=== PATIENT | male | born 1950 | race Asian ===

== ENCOUNTER 2016-07-23 16:31 | Inpatient (IN) | payer OTHER ==
[~2016-07-23] VITALS: Ht 162.6 cm; Wt 72.6 kg
--- NOTE | 2016-07-23 16:40 | ED GI/GU/ABDOMINAL COMPLAINT ---
History of Present Illness General Chief Complaint: General Adult Stated Complaint: PT WAS SIB DR FOR POSSIBLE APPENDICITIS Source: patient Exam Limitations: no limitations Vital Signs & Intake/Output Vital Signs & Intake/Output Vital Signs Date Time Temp Pulse Resp B/P Pulse O2 O2 Flow FiO2 Ox Delivery Rate 07/23 1716 Room Air Room Air 07/23 171 97.2 68 15 140/93 98 Room Air Room Air Allergies Coded Allergies: NO KNOWN ALLERGIES (08/07/12) Reconcile Medications Multivit-Min/FA/Lycopen/Lutein (Centrum Silver Men Tablet) 300 MCG-600 MCG-300 MCG TABLET 1 TAB PO DAILY SUPPLEMENT (Reported) Triage Nurses Notes Reviewed? yes Onset: Gradual Duration: waxing and waning Timing: recent history Quality/Severity: moderate Location: generalized abdomen Radiation: no radiation Activities at Onset: none Prior Abdominal Problems: none HPI: Patient is a 65-year-old male with an unremarkable past medical history who presents emergency with a gradual onset of waxing and waning denies abdominal pain. Patient followed up with primary care doctor today received CT scan imaging and had positive results concerning of appendicitis. Patient has only eaten an apple today and has no change in symptoms upon eating. Denies any fever chills back pain nausea vomiting. Last bowel movement was within last 24 hours no blood or melena noted. Patient hasn't taken any medications for symptoms. (CUBA CASTELAN) Past History Travel History Traveled to [place] past 21 day No Medical History Any Pertinent Medical History? none Surgical History Surgical History: non-contributory Psychosocial History What is your primary language Colombian Family History Hx Contributory? No (CUBA CASTELAN) Review of Systems Review of Systems Constitutional: Reports: no symptoms. EENTM: Reports: no symptoms. Respiratory: Reports: no symptoms. Cardiovascular: Reports: no symptoms. GI: Reports: see HPI, abdominal pain. Genitourinary: Reports: no symptoms. Musculoskeletal: Reports: no symptoms. Skin: Reports: no symptoms. Neurological/Psychological: Reports: no symptoms. Hematologic/Endocrine: Reports: no symptoms. Immunologic/Allergic: Reports: no symptoms. All Other Systems: Reviewed and Negative (CUBA CASTELAN) Physical Exam Physical Exam General Appearance: no apparent distress, alert Gastrointestinal: normal bowel sounds, soft, gENERALIZED POINT TENDERNESS NOTED Comments: HEENT: Normal EENT exam Neck: Supple, no lymphadenopathy, normal range of motion without pain or tenderness Back: Nontender, no CVA tenderness. Full range of motion Cardiovascular: Regular rate and rhythms no murmurs rubs or gallops, normal JVP Respiratory: Chest nontender. No respiratory distress.breath sounds clear to auscultation bilaterally Extremity: No edema, no calf tenderness to palpation, normal and equal pulses. Neuro: Alert oriented x3, motor sensory normal, cranial nerves II through XII grossly intact. Skin: No appreciable rash on exposed skin, skin is warm and dry. Psych: Mood and affect is normal, memory and judgment is normal. Core Measures ACS in differential dx? No Severe Sepsis Present: No Septic Shock Present: No (ZHAO BRICENO,CUBA) Progress Differential Diagnosis: AAA, AMI, appendicitis, biliary colic, bowel obstruction , colon cancer, cholecystitis, diverticulitis, esophageal varices, gastritis, hernia, hemorrhoids, ischemic bowel, inflamm bowel dis, Valerie-Scott tear, orchitis, pancreatitis, prostatitis, peptic ulcer, PUD/GERD, perforated viscous, pyelonephritis, SBO, testicular torsion, ureterolithiasis, urinary retention, urethritis Plan of Care: Orders Procedure Date/time Status Nothing by Mouth 07/24 B Active LACTIC ACID 07/23 1940 Active XRY-PORTABLE CHEST XRAY 07/23 1715 Active MISTAKE 07/23 1711 Active EKG 07/23 1649 Active PARTIAL THROMBOPLASTIN TIME 07/23 1640 Complete PROTHROMBIN TIME 07/23 1640 Complete LACTIC ACID 07/23 1640 Complete COMPREHENSIVE METABOLIC PANEL 07/23 1640 Complete CBC WITHOUT DIFFERENTIAL 07/23 1640 Complete TYPE & SCREEN (NOT X-MATCH) 07/23 1640 Active Laboratory Tests 07/23/16 1705: Anion Gap 12, Estimated GFR > 60, BUN/Creatinine Ratio 13.8, Glucose 102 H, Lactic Acid 0.7, Calcium 9.3, Total Bilirubin 0.9, AST 22, ALT 36, Alkaline Phosphatase 105, Total Protein 7.6, Albumin 4.4, Globulin 3.2, Albumin/Globulin Ratio 1.4, PT 12.8 H, INR 1.22 H, APTT 31, CBC w Diff NO MAN DIFF REQ, RBC 5.38, MCV 83.3, MCH 27.4, RDW 13.7, MPV 7.5, Gran % 77.7 H, Lymphocytes % 14.1 L, Monocytes % 6.3, Eosinophils % 1.5, Basophils % 0.4, Absolute Granulocytes 9.8 H, Absolute Lymphocytes 1.8, Absolute Monocytes 0.8 H, Absolute Eosinophils 0.2, Absolute Basophils 0, PUBS MCHC 32.9 L Patient currently is resting comfortably and has concerns of acute appendicitis. Surgery will perform appendectomy Patient is nothing by mouth (CUBA CASTELAN) Diagnostic Imaging: Viewed by Me: CT Scan. Radiology Impression: acute abnormality Initial ED EKG: normal p-waves, normal QRS complex, normal sinus rhythm, 63 BPM, NSR Comments: PATIENT: MODESTO MESA PRESENT AGE: 65 PATIENT ACCOUNT NO: [id number] : 50 LOCATION: [facility] ORDERING PHYSICIAN: MESFIN SON MD SERVICE DATE: 07/23/16- EXAM TYPE: CAT - CT ABD & PELVIS W ORAL & IV CO Addendum: Britta Rothman confirmed with Rebecca at 4:[address] Son had received the report. Addendum Signed by: PATRICIA WOODS MD 07/23/16 3660 EXAMINATION: CT ABDOMEN AND PELVIS WITH CONTRAST CLINICAL INFORMATION: Periumbilical pain for 3 days. Right lower quadrant tenderness with guarding and rebound. Evaluate for appendicitis. COMPARISON: None TECHNIQUE: Multidetector volumetric imaging was performed of the abdomen and pelvis before and after the IV administration of 93 mL of Optiray 320 intravenous contrast. Sagittal and coronal reformatted images were obtained on the technologist's workstation. DLP: 783 mGy-cm FINDINGS: LUNG BASES: The visualized lung bases are unremarkable. LIVER, GALLBLADDER, AND BILIARY TREE: The liver is normal in size, shape, and attenuation. No focal hepatic lesion or biliary ductal dilatation is present. The gallbladder is unremarkable with no evidence of radiopaque gallstones, gallbladder wall thickening, or obvious pericholecystic inflammatory changes. PANCREAS: Unremarkable. SPLEEN: Unremarkable. ADRENAL GLANDS: Unremarkable. KIDNEYS AND URETERS: The kidneys are normal in size, shape, and attenuation. No hydronephrosis, hydroureter, or calculi seen. No perinephric stranding. BLADDER: Unremarkable. GASTROINTESTINAL TRACT: Appendix: There is dilatation of a fluid-filled appendix with prominent stranding in the surrounding fat indicative of acute appendicitis. I do not see an appendicolith. There is minimal thickening of Gerota's fascia likely related to the inflammatory changes. There is no abscess. There is no free air. Other than some minimal surrounding pericolonic stranding in the cecum related to the suspected appendicitis, the large bowel is normal. The small bowel is normal. The stomach is normal. ABDOMINAL WALL: No significant hernia is appreciated. LYMPH NODES: Normal. VASCULAR: Unremarkable. PELVIC VISCERA: Unremarkable. OSSEOUS STRUCTURES: Minimal spondylosis of the lumbosacral spine with minimal endplate osteophyte formation but without any disc space narrowing. IMPRESSION: Acute appendicitis. DICTATED BY: PATRICIA WOODS MD DATE/TIME DICTATED:07/23/161549 MANAGER APPOINTMENT:CHARLI DATE/TIME TRANSCRIBED:07/23/161549 (CUBA CASTELAN) Departure Departure Disposition: STILL A PATIENT Condition: Critical Clinical Impression Primary Impression: Appendicitis Referrals: HUY SOLORIO,MESFIN Rosas (PCP/Family) Departure Forms: Customer Survey General Discharge Information OR/GI Note Spoke With: PHOEBE DURAND DO ED Treatment Decision: MODESTO MESA requires urgent operative management or an emergent procedure that cannot be performed in the Emergency Room setting. Transport To: [facility] (CUBA CASTELAN) PA/STONE LATHE OPERATOR Co-Sign Statement Statement: ED Attending supervision documentation- [X] I saw and evaluated the patient. I have also reviewed all the pertinent lab results and diagnostic results. I agree with the findings and the plan of care as documented in the PA's/STONE LATHE OPERATOR's documentation. [X] I have reviewed the ED Record and agree with the PA's/STONE LATHE OPERATOR's documentation. [] Additions or exceptions (if any) to the PAs/STONE LATHE OPERATOR's note and plan are summarized below: [] (LETICIA SOLORIO,RAFAEL) Critical Care Note Critical Care Note Critical Care Time: 30-74 min (CUBA CASTELAN)
[2016-07-23] MEDS ORDERED: CENTRUM SILVER1 EAC4 PO (16:53)
[2016-07-23 17:16] LABS: ABSOLUTE BASOPHIL COUNT 0 /CUMM (0.0-0.2); ABSOLUTE EOSINOPHIL COUNT 0.2 /CUMM (0.0-0.7); ABSOLUTE GRANULOCYTE CT 9.8 /CUMM (1.4-6.5); ABSOLUTE LYMPH COUNT 1.8 /CUMM (1.2-3.4); ABSOLUTE MONOCYTE COUNT 0.8 /CUMM (0.10-0.60); BASOPHIL % 0.4 % (0.0-2.0); EOSINOPHIL % 1.5 % (0-5); GRANULOCYTE % 77.7 % (42.2-75.2); HEMATOCRIT 44.8 % (42-52); MEAN CORPUSCULAR HGB 27.4 PG (27.0-31.0); MEAN CORPUSCULAR HGB CONC 32.9 G/DL (33.0-37.0); MEAN CORPUSCULAR VOLUME 83.3 FL (80.0-94.0); MEAN PLATELET VOLUME 7.5 FL (7.4-10.4); PLATELET COUNT 253 /CUMM (130-400); RBC DISTRIBUTION WIDTH 13.7 % (11.5-14.5); RED BLOOD CELL CT 5.38 /CUMM (4.70-6.10); WHITE BLOOD CELL COUNT 12.6 /CUMM (4.8-10.8)
--- NOTE | 2016-07-23 17:16 | NUR ---
RECEIVED 65 YO MALE BOUGHT DIRECTLY TO ROOM # [address] SCAN FOR APPENDICITIS[address] PT REPORTS ABDOMINAL PAIN INTERMITTENTLY X 3 DAYS.
--- NOTE | 2016-07-23 17:17 | NUR ---
SURGICAL PA AT BEDSIDE FOR EVAL.
[2016-07-23 17:24] LABS: PT 12.8 SEC (9.4-12.5); PTT 31 SEC (25-37)
--- NOTE | 2016-07-23 17:32 | History & Physical ---
LALIT ZHANG PA-C 07/23/16 7605: General Information and HPI History of Present Illness: Patient is a 65-year-old male with an unremarkable past medical history who presents emergency with a gradual of generalized abdominal pain for last 2-3 days. Decreased appetite. Denies nausea vomiting or fever. No history of same. No previous history of abdominal surgery. He states the pain was very severe in his lower abdomen today, right side mostly but also some moderate left -sided pain that was nonradiating. Patient followed up with primary care doctor today received CT scan imaging with IV and by mouth contrast and had positive results of appendicitis. I have reviewed the CT scan results. Patient is comfortable now, he has pain only with palpation of the lower abdomen. He denies any urinary symptoms. Allergies/Medications Allergies: Coded Allergies: NO KNOWN ALLERGIES (08/07/12) Home Med list Multivit-Min/FA/Lycopen/Lutein (Centrum Silver Men Tablet) 300 MCG-600 MCG-300 MCG TABLET 1 TAB PO DAILY SUPPLEMENT (Reported) Past History Travel History Traveled to [place] past 21 day No Medical History Neurological: NONE EENT: NONE Cardiovascular: NONE Respiratory: NONE Gastrointestinal: NONE Hepatic: NONE Renal: NONE Musculoskeletal: NONE Psychiatric: NONE Endocrine: NONE Blood Disorders: NONE Cancer(s): NONE CABANA ATTENDANT/Reproductive: NONE Surgical History Surgical History: nasal surgery Past Family/Social History Psychosocial History ETOH Use: denies use Illicit Drug Use: denies illicit drug use Review of Systems Review of Systems Constitutional: Reports: see HPI. EENTM: Reports: no symptoms. Cardiovascular: Reports: no symptoms. Respiratory: Reports: no symptoms. GI: Reports: see HPI. Genitourinary: Reports: no symptoms. Musculoskeletal: Reports: no symptoms. Skin: Reports: no symptoms. Neurological/Psychological: Reports: no symptoms. Hematologic/Endocrine: Reports: no symptoms. Immunologic/Allergic: Reports: no symptoms. All Other Systems: Reviewed and Negative Exam & Diagnostic Data Last 24 Hrs of Vital Signs/I&O Vital Signs Date Time Temp Pulse Resp B/P Pulse O2 O2 Flow FiO2 Ox Delivery Rate 07/24 1715 Room Air Room Air 07/23 1710 97.2 68 15 140/93 98 Room Air Room Air Physical Exam General Appearance Alert, Oriented X3, Cooperative, No Acute Distress Skin No Rashes, No Breakdown, No Significant Lesion HEENT Atraumatic, PERRLA, EOMI, Mucous Membr. moist/pink Neck Supple, No JVD, No thryomegaly Lymphatic Cervical nl Cardiovascular Regular Rate, Normal S1, Normal S2, No Murmurs Lungs Clear to Auscultation, Normal Air Movement Abdomen Normal Bowel Sounds, Soft, No Hepatospenomegaly, No Masses, mild tenderness over McBurney's point,minimal tenderness of the left lower quadrant, positive Rovsing sign. Negative psoas sign. No peritoneal signs Neurological Normal Speech, Strength at 5/5 X4 Ext Extremities No Clubbing, No Cyanosis, No Edema, No Tenderness/Swelling Last 24 Hrs of Labs/Damien: Laboratory Tests 07/23/16 1705: Sodium Pending, Potassium Pending, Chloride Pending, Carbon Dioxide Pending, Anion Gap Pending, BUN Pending, Creatinine Pending, BUN/Creatinine Ratio Pending , Glucose Pending, Lactic Acid Pending, Calcium Pending, Total Bilirubin Pending , AST Pending, ALT Pending, Alkaline Phosphatase Pending, Total Protein Pending, Albumin Pending, Globulin Pending, Albumin/Globulin Ratio Pending, PT Pending, INR Pending, APTT Pending, CBC w Diff NO MAN DIFF REQ, RBC 5.38, MCV 83.3, MCH 27.4, RDW 13.7, MPV 7.5, Gran % 77.7 H, Lymphocytes % 14.1 L, Monocytes % 6.3, Eosinophils % 1.5, Basophils % 0.4, Absolute Granulocytes 9.8 H, Absolute Lymphocytes 1.8, Absolute Monocytes 0.8 H, Absolute Eosinophils 0.2, Absolute Basophils 0, PUBS MCHC 32.9 L Diagnostic Data EKG Results NSR 65bpm, no st/t wave changes CXR Results pending performance of chest xray for pre op. Other Results PATIENT: MODESTO MESA PRESENT AGE: 65 PATIENT ACCOUNT NO: [id number] : 50 [facility]ICIAN: MESFIN SON MD SERVICE DATE: 07/23/16- EXAM TYPE: CAT - CT ABD & PELVIS W ORAL & IV CO Addendum: Britta Rothman confirmed with Rebecca at 4:[address] Son had received the report. Addendum Signed by: PATRICIA WOODS MD 07/23/16 162 EXAMINATION: CT ABDOMEN AND PELVIS WITH CONTRAST CLINICAL INFORMATION: Periumbilical pain for 3 days. Right lower quadrant tenderness with guarding and rebound. Evaluate for appendicitis. COMPARISON: None TECHNIQUE: Multidetector volumetric imaging was performed of the abdomen and pelvis before and after the IV administration of 93 mL of Optiray 320 intravenous contrast. Sagittal and coronal reformatted images were obtained on the technologist's workstation. DLP: 783 mGy-cm FINDINGS: LUNG BASES: The visualized lung bases are unremarkable. LIVER, GALLBLADDER, AND BILIARY TREE: The liver is normal in size, shape, and attenuation. No focal hepatic lesion or biliary ductal dilatation is present. The gallbladder is unremarkable with no evidence of radiopaque gallstones, gallbladder wall thickening, or obvious pericholecystic inflammatory changes. PANCREAS: Unremarkable. SPLEEN: Unremarkable. ADRENAL GLANDS: Unremarkable. KIDNEYS AND URETERS: The kidneys are normal in size, shape, and attenuation. No hydronephrosis, hydroureter, or calculi seen. No perinephric stranding. BLADDER: Unremarkable. GASTROINTESTINAL TRACT: Appendix: There is dilatation of a fluid-filled appendix with prominent stranding in the surrounding fat indicative of acute appendicitis. I do not see an appendicolith. There is minimal thickening of Gerota's fascia likely related to the inflammatory changes. There is no abscess. There is no free air. Other than some minimal surrounding pericolonic stranding in the cecum related to the suspected appendicitis, the large bowel is normal. The small bowel is normal. The stomach is normal. ABDOMINAL WALL: No significant hernia is appreciated. LYMPH NODES: Normal. VASCULAR: Unremarkable. PELVIC VISCERA: Unremarkable. OSSEOUS STRUCTURES: Minimal spondylosis of the lumbosacral spine with minimal endplate osteophyte formation but without any disc space narrowing. IMPRESSION: Acute appendicitis. DICTATED BY: PATRICIA WOODS MD DATE/TIME DICTATED:07/23/161549 TAG WRITER:CHARLI DATE/TIME TRANSCRIBED:07/23/161549 Assessment/Plan Assessment: Acute appendicitis -Discussed with , admitted for 23 hour observation for acute appendicitis, to OR tonight for Lappas copy appendectomy -IV Unasyn given in the ER, 3 g and continue postoperatively -DVT prophylaxis postop with heparin subcutaneous -Pain medication as needed, currently patient comfortable -Nothing by mouth until surgery As Ranked By This Provider Problem List: 1. Appendicitis Core Measures/Miscellaneous Acute Coronary Syndrome ACS Diagnosis: No Cerebrovascular Accident CVA/TIA Diagnosis: No Congestive Heart Failure CHF Diagnosis: No Venous Thromboembolism VTE Risk Factors: Age > 40, [facility] prophylaxis d/t: No contraindications No VTE Pharm Prophylaxis d/t: No contraindications VTE Diagnosis: No VTE Type: NONE VTE Confirmed by (Test): NONE Severe Sepsis Severe Sepsis Present: No Septic Shock Septic Shock Present: No Miscellaneous Documentation Attending Case Discussed With: Dr Díaz Primary Care Physician: MESFIN SON MD Patient sees these Specialists none Level of Patient Care: General Surgical LADARIUS PHOEBE JIMENEZ 07/23/162031: Attending MD Review Statement Attending Statement Attending MD Statement: examined this patient, discuss w/resident/PA/RETURNS PROCESSOR, agreed w/resident/PA/RETURNS PROCESSOR, discussed with family, reviewed images Attending Assessment/Plan: Patient with abdominal pain for past 2-3 days that became more severe overnight. CT scan shows acute appendicitis with surrounding inflammation. On exam patient with RLQ pain. A Laparoscopic appendectomy was discussed in detail. He will be admitted for NPO/IVF/IV Abx, and lap Appy leta. I did also explain that if the inflammation is extensive with a phlegmon I may not be able to do the case and would drain and place on IV Abx. The family and patient understand and want to proceed.
--- NOTE | 2016-07-23 17:58 | NUR ---
PRE-OP CHECKLIST COMPLETED AND SCRUB COMPLETE. PT STABLE FOR OR. PT TRANSPORTED TO OR NOW.
--- NOTE | 2016-07-23 17:59 | RADIOLOGY REPORT ---
EXAMINATION: XR PORTABLE CHEST CLINICAL INFORMATION: Preoperative evaluation for appendicitis surgery. COMPARISON: Portions of CT abdomen and pelvis of 07/23/2016 TECHNIQUE: Portable AP view of the chest was obtained. FINDINGS: The cardiomediastinal silhouette is normal. The lungs are mildly hypoexpanded. Minimal linear left basilar atelectasis. No focal consolidation, changes of congestion or pleural effusions. No pneumothorax. No acute osseous abnormality. Mild degenerative changes of the spine. IMPRESSION: No acute pulmonary process.
--- NOTE | 2016-07-23 20:31 | Operative Report ---
Operative/Inv Procedure Report Surgery Date: 07/23/16 Name of Procedure: Laparoscopic Appendectomy Pre-Operative Diagnosis: Acute Appendicitis Post-Operative Diagnosis: Acute necrotic appendicitis Estimated Blood Loss: less than 50ml Surgeon/Interchange Agent: PHOEBE CAMPBELL Anesthesia: general endotracheal tube IV Fluids: 1800 cc Drains: 10 Fr LLQ PAL Specimens: Appendix Complications: none Condition: Stable Operative Indication: This is a 65-year-old male who presented to the emergency room after undergoing an outpatient CT scan of the abdomen and pelvis for abdominal pain which has been present for several days. The CT scan was positive for acute appendicitis. On exam patient did have a right lower quadrant tenderness. A laparoscopic appendectomy was discussed in detail. All risks including but not limited to bleeding, infection, postoperative abscess, and injury to surrounding bowel were discussed in detail. The patient understood everything and decided to proceed. Operative/Procedure Note Note: The patient was brought to the operating room and placed on the table in supine position. Venodyne stockings were placed and adequate general endotracheal anesthesia was obtained. The patient was prepped and draped in standard surgical fashion. Began the procedure by making a 2 cm transverse incision in the infraumbilical crease. Incision was carried down to the fascia. Once the fascia was clearly visualized it was picked up between 2 Mariam clamps and divided in the midline. Once we entered the peritoneum 2 stay Vicryl sutures were placed on each side and a 12 mm blunt port was inserted. The abdominal cavity was insufflated to 15 mmHg. And a 10 mm 30 laparoscope was introduced. Upon initial examination no obvious gross pathology was seen, some hyperemia and inflammatory reaction was noted in the right lower quadrant. Accessory trocars were placed, both 5 mm, one in the left lower quadrant and one suprapubic. Ascending colon was identified and traced proximally, terminal ileum was identified, and we did note the appendix with dense adhesions coursing intop the pelvis. The base of the appendix was identified and appeared thickened. Distal appendix was markedly inflamed and thickened and adhered to the retroperitoneum. Using blunt dissection and harmonic scalpel the appendix was carefully dissected away from surrounding structures. Of note, the dissection took some time due to the very dense adhesions indicating the processes going on for a long time. The appendix was noted to be necrotic as it was falling apart with the dissection. Once the appendix was away from the omentum and the sidewall the mesoappendix was divided using Harmonic scalpel maintaining hemostasis until the appendiceal base was clearly visualized and freely up in the air. We had to extend our dissection to the cecum which also appeared an felt very thick. At that point we switched to a 5 mm laparoscope and a 45 mm purple Endo JOSE JUAN load was inserted and the base was transected, the staple line was on the cecum proximal to the base. The appendix was placed in an Endobag and removed through the umbilical trocar site. The abdominal cavity was reinsufflated and we switched back to a 10 mm laparoscope. Staple line was examined and appeared intact but we did note that part of the staple line went through very thick wall. At that point several 2-0 Vicryl sutures were placed to imbricate the staple line. At the completion the stump was visulaized and was intact, the staple line was completely imbricated. No other abnormalities were noted. The pelvis and the right lower quadrant were irrigated until clear. 10 Fr PAL Drain was placed through the LLQ port site into the pelvis and coursing to the right paracolic gutter. All ports were removed under direct visualization, bleeding was noted from the suprapubic port and controlled using electrocuatery. The umbilical trocar site was closed using 0 Vicryl suture. The skin was closed using 4-0 Monocryl. Steri-Strips and dressings were placed. The patient was successfully extubated and transferred to the recovery room in stable condition. The patient tolerated procedure well with no complications. Of note upon discussion with the patient's after the procedure, she stated that he has been having some abdominal discomfort since the end of last week. Findings: Short/necrotic appendix, necrotic base, thickened cecum CC: HUY SOLORIO,MESFIN Rosas
[2016-07-23 21:45] VITALS: BP 116/80
--- NOTE | 2016-07-23 22:00 | NUR ---
PT ARRIVED TO UNIT AT 2118 FROM PACU. PT ORIENTED TO CALL [facility]GO, ROOM, STAFF, SURROUNDINGS. PT A+Ox3 AND ON 3L (99%). 02 DECREASED TO 2L NC AT THIS TIME (97%). VSS. ORAL TEMP ONLY 94. RECTAL TEMP 97. SURGICAL PA OMKAR MADE AWARE. PT NOT COOL TO TOUCH, NO COMPLAINTS. PT AMBULATED TO BATHROOM WITHOUT ANY DIFFICULTY AND VOIDED IN TOILET 200 ML. PT HAD PRESSURE/ DIFFICULTY URINATING. SURGICAL PA OMKAR MADE AWARE. PRN STRAIGHT CATH ORDER PLACED. WILL CONTINUE TO CLOSELY MONITOR.
--- NOTE | 2016-07-23 23:41 | Admission Core Measures ---
Admission Lab Results I reviewed the following labs: Laboratory Tests 07/23 1705 Chemistry Sodium (137 - 145 mmol/L) 135 L Potassium (3.5 - 5.1 mmol/L) 4.3 Chloride (98 - 107 mmol/L) 98 Carbon Dioxide (22 - 30 mmol/L) 26 Anion Gap (5 - 16) 12 BUN (9 - 20 mg/dL) 11 Creatinine (0.7 - 1.2 mg/dL) 0.8 Estimated GFR (>60 ml/min) > 60 BUN/Creatinine Ratio (7 - 25 %) 13.8 Glucose (65 - 99 mg/dL) 102 H Lactic Acid (0.7 - 2.1 mmol/L) 0.7 Calcium (8.4 - 10.2 mg/dL) 9.3 Total Bilirubin (0.2 - 1.3 mg/dL) 0.9 AST (17 - 59 U/L) 22 ALT (21 - 72 U/L) 36 Alkaline Phosphatase (< 127 U/L) 105 Total Protein (6.3 - 8.2 g/dL) 7.6 Albumin (3.5 - 5.0 g/dL) 4.4 Globulin (1.9 - 4.2 gm/dL) 3.2 Albumin/Globulin Ratio (1.1 - 2.2 %) 1.4 Coagulation PT (9.4 - 12.5 SEC) 12.8 H INR (0.90 - 1.17) 1.22 H APTT (25 - 37 SEC) 31 Hematology CBC w Diff NO MAN DIFF REQ WBC (4.8 - 10.8 /CUMM) 12.6 H RBC (4.70 - 6.10 /CUMM) 5.38 Hgb (14.0 - 18.0 G/DL) 14.7 Hct (42 - 52 %) 44.8 MCV (80.0 - 94.0 FL) 83.3 MCH (27.0 - 31.0 PG) 27.4 RDW (11.5 - 14.5 %) 13.7 Plt Count (130 - 400 /CUMM) 253 MPV (7.4 - 10.4 FL) 7.5 Gran % (42.2 - 75.2 %) 77.7 H Lymphocytes % (20.5 - 51.1 %) 14.1 L Monocytes % (1.7 - 9.3 %) 6.3 Eosinophils % (0 - 5 %) 1.5 Basophils % (0.0 - 2.0 %) 0.4 Absolute Granulocytes (1.4 - 6.5 /CUMM) 9.8 H Absolute Lymphocytes (1.2 - 3.4 /CUMM) 1.8 Absolute Monocytes (0.10 - 0.60 /CUMM) 0.8 H Absolute Eosinophils (0.0 - 0.7 /CUMM) 0.2 Absolute Basophils (0.0 - 0.2 /CUMM) 0 PUBS MCHC (33.0 - 37.0 G/DL) 32.9 L Admission Meds I reviewed the following Meds: Current Medications Sig/Mu Start time Last Medication Dose Stop Time Status Admin Ceftriaxone Sodium 1,000 MG DAILY 07/24 0000 AC (Rocephin) Heparin Sodium 5,000 UNIT Q8 07/24 0600 AC (Porcine) Metronidazole 500 MG IQ8 07/24 0000 AC (Flagyl) N/A 1 UNIT (No Carrier) Morphine Sulfate 4 MG Q2P PRN 07/23 2044 AC (Morphine) Ondansetron HCl 4 MG Q6P PRN 07/23 2044 AC (Zofran) Oxycodone/ 1 TAB Q4P PRN 07/23 2044 AC Acetaminophen (Percocet) Oxycodone/ 2 TAB Q4P PRN 07/23 2044 AC Acetaminophen (Percocet) Acute Coronary Syndrome Inclusion Criteria ACS Diagnosis No Inpatient Core Measures LDL Reminder: If No, please order W/I first 24hr of stay Congestive Heart Failure Inclusion Criteria CHF Diagnosis No Cerebrovascular accident Inclusion Criteria CVA/TIA Diagnosis No Inpatient Core Measures Bedside Swallow Eval Reminder: If BSE failed, place ST order Antithrombotic Reminder: Order Antithrombotic Medication by end of day 2 Antithrombotic Reminder: Document Reason Antithrombotic Not ordered by end of day 2 AFIB/Flutter Reminder: If Present, add to problem list AFIB/Flutter Reminder: Order Anticoag Medication for pts with AFIB/Flutter Atherosclerosis Reminder: If Present, add to problem list LDL Reminder: If No, please order W/I first 24hr of stay PT Order Reminder: If No, please order Venous thromboembolism Inpatient Core Measures VTE Risk Factors: Age > 40, Surgery No Mech VTE prophylaxis d/t No contraindications No VTE Pharm Prophylaxis d/t No contraindications Inclusion Criteria - Per Current guidelines, there needs to be overlap - treatment for the first 5 days of Warfarin therapy. - Parenteral Anticoagulation (IV or SC) needs to be - given along with Warfarin therapy. VTE Diagnosis No VTE Type NONE VTE Confirmed by (Test) NONE Problem List As ranked by this Provider includes Assessment & Plan 1. Appendicitis HOME MEDS Home Med List Multivit-Min/FA/Lycopen/Lutein (Centrum Silver Men Tablet) 300 MCG-600 MCG-300 MCG TABLET 1 TAB PO DAILY SUPPLEMENT (Reported)
--- NOTE | 2016-07-23 23:47 | PN- General Surgery ---
Subjective Subjective: poc s/p lap appy no complaints denies cp, sob, no n+v with clear diet Objective Vital Signs and I&Os Vital Signs Date Time Temp Pulse Resp B/P Pulse O2 O2 Flow FiO2 Ox Delivery Rate 07/23 2336 96 Nasal 2.0L Cannula 07/23 2145 97.0 88 18 116/80 96 Nasal 2.0L Cannula 07/23 1716 Room Air Room Air 07/23 1711 97.2 68 15 140/93 98 Room Air Room Air Physical Exam: cv: rrr lungs: clear abd: soft, +bs drsgs dry rosa: sm amt of snaguinous drainage ext: no edema, distal cms intact Assessment/Plan Assessment/Plan s/p lap appy(gangrenous appendicitis) plan iv abx pain control will trend cbc possible d/c tuesday Core Measures/Miscellaneous Venous Thromboembolism VTE Risk Factors: Age > 40, Surgery VTE Contraindications: No Contraindications VTE Diagnosis: No VTE Type: NONE VTE Confirmed by (Test): NONE Beta Bruce Is Beta Bruce a Home Med? No Antibiotics Is Patient on Antibiotics? Yes
[2016-07-24] VITALS (8 sets, daily range): BP systolic 106–139; BP diastolic 58–90
--- NOTE | 2016-07-24 08:45 | NUR ---
PATIENT REPORTING INCREASE FREQUENCY, DECREASED AMOUNT WITH PRESSURE FEELING FOR URINATION. NOTIFIED SURGICAL PA OF POST VOID RESIDUAL VIA BLADDER SCANNER = 690 ML. PER SURGICAL PA STRAIGHT CATH. STRAIGHT CATH PER POLICY VIA STERILE TECHNIQUE. PATIENT TOLERATED WELL. STRAIGHT CATHETER DRAINED 800ML CLEAR YELLOW URINE. NOTIFIED SURGICAL PA. WILL CONTINUE TO MONITOR.
[2016-07-24 09:26] LABS: ABSOLUTE BASOPHIL COUNT 0 /CUMM (0.0-0.2); ABSOLUTE EOSINOPHIL COUNT 0 /CUMM (0.0-0.7); ABSOLUTE GRANULOCYTE CT 11.2 /CUMM (1.4-6.5); ABSOLUTE LYMPH COUNT 0.8 /CUMM (1.2-3.4); ABSOLUTE MONOCYTE COUNT 0.5 /CUMM (0.10-0.60); BASOPHIL % 0.2 % (0.0-2.0); EOSINOPHIL % 0.1 % (0-5); GRANULOCYTE % 88.9 % (42.2-75.2); MEAN CORPUSCULAR HGB 27.8 PG (27.0-31.0); MEAN CORPUSCULAR HGB CONC 33.4 G/DL (33.0-37.0); MEAN CORPUSCULAR VOLUME 83.1 FL (80.0-94.0); MEAN PLATELET VOLUME 8.2 FL (7.4-10.4); PLATELET COUNT 234 /CUMM (130-400); RBC DISTRIBUTION WIDTH 13.7 % (11.5-14.5); RED BLOOD CELL CT 4.76 /CUMM (4.70-6.10); WHITE BLOOD CELL COUNT 12.6 /CUMM (4.8-10.8)
[2016-07-24 09:38] LABS: HEMATOCRIT 39.6 % (42-52)
--- NOTE | 2016-07-24 12:13 | PN- General Surgery ---
Surgical Brief Attending Note Brief Attending Note: Doing well, urinary retention relieved with a straight cath, tolerating clears, no c/o pain. AVSS UO ok PAL serosanguinous. Abd-soft, NT. Labs ok. Clears to full today, OOB ambulate, monitor urinary retention, cont IV Abx, for necrotic appendicitis.
--- NOTE | 2016-07-24 16:26 | NUR ---
PT UNABLE TO VOID AT THIS TIME. BLADDER SCANNED FOR 450-460 ML URINE. SURGICAL KAITY LIVE ON FLOOR AT THIS TIME, SCP ON HOLD FOR NOW, AWAITING FURTHER ORDERS. WILL CONTINUE TO MONITOR.
[2016-07-24] MEDS ORDERED: FLOMAX0.4 M1 PO (21:25)
--- NOTE | 2016-07-24 21:30 | Patient Discharge Instructions ---
Discharge Instructions General Discharge Information You were seen/treated for: Acute appendicitis You had these procedures: Laparoscopic appendectomy Watch for these problems: Increasing abdominal pain despite the use of pain medication, nausea, vomitting, inability to pass gas or move bowels, excessive diarrhea, fever >101.5 Do not soak the wound: Yes Other wound care: Keep wound clean and dry. Do not remove steri-strips, allow them to fall off. This usually takes one week. Your sutures will dissolve, they do not need to be removed. Special Instructions: You are being discharged with a caldwell catheter in place to help with your urination. Please contact the urologist, Dr. Radha Preston on Tuesday07/26/2016 to be seen for further care. Diet Continue normal diet: Yes Recommended Diet: Regular Additional DIET Information: Advance as tolerated Activity Full Activity/No Limits: No Activity Self Limited: Yes Pounds, do NOT lift more than: 10 Acute Coronary Syndrome Inclusion Criteria At DC or during hospital stay patient has or had the following: ACS DIAGNOSIS No Discharge Core Measures Meds if any: Prescribed or Continued at Discharge Meds if any: NOT Prescribed or Continued at Discharge Congestive Heart Failure Inclusion Criteria At DC or during hospital stay patient has or had the following: CHF DIAGNOSIS No Discharge Core Measures Meds if any: Prescribed or Continued at Discharge Meds if any: NOT Prescribed or Continued at Discharge Cerebrovascular accident Inclusion Criteria At DC or during hospital stay patient has or had the following: CVA/TIA Diagnosis No Discharge Core Measures Meds if any: Prescribed or Continued at Discharge Meds if any: NOT Prescribed or Continued at Discharge Venous thromboembolism Inclusion Criteria VTE Diagnosis No VTE Type NONE VTE Confirmed by (Test) NONE Discharge Core Measures - Per Current guidelines, there needs to be overlap - treatment for the first 5 days of Warfarin therapy. - If discharged on Warfarin prior to 5 days of - overlap therapy, the patient will need to be - assessed for post discharge needs including - *Post discharge parental anticoagulation - *Warfarin and/or parental anticoagulation education - *Follow up date to check INR post discharge At least 5 days overlap therapy as Inpatient No Meds if any: Prescribed or Continued at Discharge Note: Overlap Therapy is Warfarin and Anticoagulant Meds if any: NOT Prescribed or Continued at Discharge
--- NOTE | 2016-07-24 21:37 | Surgical Discharge Summary ---
Visit Information Visit Dates Admission Date: 07/23/16 Discharge Date: 07/26/16 History of Present Illness Chief Complaint: Abdominal pain related to gangrenous appendicitis Medical History Blood Transfusion Hx: No Neurological: NONE EENT: NONE Cardiovascular: NONE Respiratory: NONE Gastrointestinal: NONE Hepatic: NONE Renal: NONE Musculoskeletal: NONE Psychiatric: NONE Endocrine: NONE Blood Disorders: NONE Cancer(s): NONE WOMEN'S SOCCER COACH/Reproductive: NONE History of MRSA: No History of VRE: No History of CDIFF: No Isolation History: Standard Surgical History Pertinent Surgical History: nasal surgery Psychosocial History Where Do You Live? Home Who Do You Live With? Spouse Services at Home: None What is Your Primary Language? Sum[place] ETOH Use: denies use Review of Systems: See H&P Hospital Course Course Attending Physician: PHOEBE DURAND DO Primary Care Physician: MESFIN SON MD Hospital Course: Jason was admitted to the hospital on 07/23/2016 through the emergency department and underwent an urgent laparoscopic appendectomy, He tolerated the procedure well and was transferred to a general surgical floor. His diet was advanced slowly and tolerated. His vital signs were stable and within normal limits. He was afebrile. His pain was well controlled with non-narcotic pain medication. He was ambulatory. On post op day 1 he was having difficulty voiding and required straight catheterization and subsequent placement of caldwell catheter. He was started on flomax at the recommendation of a urologist, Dr. Radha Preston, and he was instructed to leave caldwell catheter in place and to follow up as an outpatient with Dr. Preston. He was deemed appropriate for discharge from hospital. Allergies: Coded Allergies: NO KNOWN ALLERGIES (08/07/12) Disposition Summary Disposition Principal Diagnosis: Acute appendicitis Additional Diagnosis: Post operative urinary retention Discharge Disposition: home or self care Discharge Instructions General Discharge Information Code Status: Full Code Patient's Diet: Regular, advance as tolerated Patient's Activity: No lifting greater than 10 pounds Follow-Up Instructions/Appts: Dr. Preston: Tuesday07/26/2016, call office to arrange/confirm appointment Dr. Durand: One week from surgery, call office to arrange/confirm appointment Medications at Discharge Discharge Medications: Continue taking these medications: Multivit-Min/FA/Lycopen/Lutein (Centrum Silver Men Tablet) 300 MCG-600 MCG-300 MCG TABLET 1 Tablet ORAL DAILY Comments: NOT GIVEN IN HOSPITAL Start taking the following new medications: Tamsulosin HCl (Flomax) 0.4 MG CAP.ER.24H 1 Capsule ORAL DAILY Qty = 30 No Refills Comments: Last Taken: 07/26/16 Time: 10AM Amoxicillin/Potassium Clav (Augmentin 875-125 Tablet) 875 MG-125 MG TABLET 1 Tablet ORAL TWICE DAILY Qty = 14 No Refills Comments: NOT GIVEN IN HOSPITAL Metronidazole (Flagyl) 500 MG TABLET 1 Tablet ORAL TWICE DAILY Qty = 14 No Refills Comments: IV ADMINISTERED IN HOSPITAL ORAL NOT GIVEN Acetaminophen (Tylenol Extra Strength) 500 MG TABLET 1-2 Tablet ORAL EVERY SIX HOURS NEEDED as needed for PAIN Days = 7 No Refills Comments: NOT GIVEN IN HOSPITAL
[2016-07-25 07:24] VITALS: BP 118/62
--- NOTE | 2016-07-25 07:50 | PN- General Surgery ---
See Addendum Subjective Subjective: The patient was seen this morning postoperatively day #2. He reports feeling nauseous earlier this morning with one bout of emesis. He continues to feel bloated and reports having a decreased appetite. He has been passing flatus but has yet to have a bowel movement postoperatively. Objective Vital Signs and I&Os Vital Signs Date Time Temp Pulse Resp B/P Pulse O2 O2 Flow FiO2 Ox Delivery Rate 07/25 0724 97.7 92 20 118/62 93 07/24 2159 98.0 65 20 122/78 99 Room Air 07/24 1759 97.9 68 20 118/68 98 Room Air 07/24 1434 98.4 78 20 108/58 98 Room Air 07/24 1245 97.9 74 18 106/60 07/24 0900 96 Room Air 07/24 0809 98.4 71 18 110/78 98 Room Air 07/24 0800 Room Air Intake & Output 07/25 0800 04/ 0000 04/ 1600 07/24 0800 07/24 0000 07/23 1600 Intake Total 0578 229 9474 960 510 Output Total 1370 1850 1020 1395 220 Balance -240 -1250 60 -435 290 Intake, IV 650 600 600 600 150 Intake, Oral 480 480 360 360 Output, 70 20 20 20 Drainage Output, 100 Emesis Output, Urine 1200 1850 1000 1375 200 Patient 160 lb Weight Physical Exam: Gen.: Alert and in no obvious distress Skin: Warm and dry Abdomen: Softly distended, appropriate incisional tenderness, bowel sounds sluggish. Port sites are clean, dry, and intact without signs of infection. He has a PAL 1 holding suction with serosanguineous drainage in the bulb. Extremities: Bilateral lower extremities are warm without calf tenderness or significant edema. Assessment/Plan Assessment/Plan Assessment: 65-year-old male status post lap scopic appendectomy postoperative day #2. Postoperative the patient is making slow progression however he does show some signs of an evolving ileus. The patient is also had issues of postoperative urinary retention for which she currently has a Herrera catheter and was started on Flomax. Plan: Continue IV fluids until diet is advanced and tolerated Keep on current diet the patient was instructed should he continue to be nauseous to alert the staff and stop his diet. Out of bed and ambulate Continue IV antibiotics Renew Herrera catheter and keep on Flomax Keep PAL is self suction GI and DVT prophylaxis PRN antiemetics, antipyretics, and meds Core Measures/Miscellaneous Herrera Catheter Date In: 07/24/16 Still Needed? Yes Venous Thromboembolism VTE Risk Factors: Age > 40, Surgery VTE Contraindications: No Contraindications VTE Diagnosis: No VTE Type: NONE VTE Confirmed by (Test): NONE Beta Bruce Is Beta Bruce a Home Med? No Antibiotics Is Patient on Antibiotics? Yes If Yes: infection
[2016-07-25 08:29] LABS: ABSOLUTE BASOPHIL COUNT 0 /CUMM (0.0-0.2); ABSOLUTE EOSINOPHIL COUNT 0.1 /CUMM (0.0-0.7); ABSOLUTE GRANULOCYTE CT 8.6 /CUMM (1.4-6.5); ABSOLUTE MONOCYTE COUNT 0.5 /CUMM (0.10-0.60); BASOPHIL % 0.5 % (0.0-2.0); EOSINOPHIL % 0.6 % (0-5); GRANULOCYTE % 84.3 % (42.2-75.2); HEMATOCRIT 37.9 % (42-52); MEAN CORPUSCULAR HGB 27.6 PG (27.0-31.0); MEAN CORPUSCULAR HGB CONC 33.2 G/DL (33.0-37.0); MEAN CORPUSCULAR VOLUME 83.1 FL (80.0-94.0); MEAN PLATELET VOLUME 8.5 FL (7.4-10.4); PLATELET COUNT 225 /CUMM (130-400); RBC DISTRIBUTION WIDTH 13.5 % (11.5-14.5); RED BLOOD CELL CT 4.57 /CUMM (4.70-6.10)
[2016-07-25 09:16] LABS: WHITE BLOOD CELL COUNT 10.2 /CUMM (4.8-10.8)
[2016-07-25 14:40] VITALS: BP 120/62
[2016-07-25 22:26] VITALS: BP 118/60
[2016-07-26 06:35] VITALS: BP 142/78
--- NOTE | 2016-07-26 07:53 | PN- General Surgery ---
See Addendum Subjective Subjective: OOB in chair tolerating liquid diet without any nausea or pain Ambulating without difficulty +BM, +flatus Objective Vital Signs and I&Os Vital Signs Date Time Temp Pulse Resp B/P Pulse O2 O2 Flow FiO2 Ox Delivery Rate 07/26 0635 98.2 84 20 142/78 97 Room Air 07/25 2226 98.5 80 20 118/60 96 Room Air 07/25 1440 98.2 85 20 120/62 96 07/25 1004 81 120/60 Intake & Output 07/26 0800 07/26 0000 07/25 1600 07/25 0800 07/25 0000 07/24 1600 Intake Total 9758 599 0540 1369 012 3972 Output Total 1390 296 224 2783 1850 1170 Balance -310 -50 579 -240 -1250 -90 Intake, IV 600 600 600 650 600 600 Intake, Oral 480 680 480 480 Number 1 Bowel Movements Output, 40 100 70 20 Drainage Output, 100 Emesis Output, Stool 1 Output, Urine 1350 635 456 3730 1850 1150 Physical Exam: afebrile, vss PAL: 40cc overnight serous, 60/40 prior two shifts Uriine output - caldwell General: alert and oriented times three Chest: clear anteriorly bilaterally, RRR Abd: softly distended, good bs, PAL intact - serous fluid in bulb Ext: warm, no edema Wounds: dressed, dry Assessment/Plan Assessment/Plan 65 yo male pod 3 s/p gangrenous appy with urinary retention post op Dr Preston - urology - to see today Keep caldwell for now for post op urinary retention - flomax begun ABX - continue for s/p gangrenous appy PAL - keep for now, will discuss with Dr Díaz regarding discontinuing dc planning advance to regular diet Core Measures/Miscellaneous Caldwell Catheter Date In: 07/24/16 Venous Thromboembolism VTE Risk Factors: Age > 40, Surgery VTE Contraindications: No Contraindications VTE Diagnosis: No VTE Type: NONE VTE Confirmed by (Test): NONE Beta Bruce Is Beta Bruce a Home Med? No Antibiotics Is Patient on Antibiotics? Yes If Yes: infection
[2016-07-26 08:06] LABS: ABSOLUTE BASOPHIL COUNT 0.1 /CUMM (0.0-0.2); ABSOLUTE EOSINOPHIL COUNT 0.3 /CUMM (0.0-0.7); ABSOLUTE GRANULOCYTE CT 6.5 /CUMM (1.4-6.5); ABSOLUTE LYMPH COUNT 2.1 /CUMM (1.2-3.4); ABSOLUTE MONOCYTE COUNT 0.7 /CUMM (0.10-0.60); BASOPHIL % 0.6 % (0.0-2.0); EOSINOPHIL % 3.6 % (0-5); GRANULOCYTE % 66.9 % (42.2-75.2); MEAN CORPUSCULAR HGB 27.9 PG (27.0-31.0); MEAN CORPUSCULAR HGB CONC 33.4 G/DL (33.0-37.0); MEAN CORPUSCULAR VOLUME 83.7 FL (80.0-94.0); MEAN PLATELET VOLUME 8.3 FL (7.4-10.4); PLATELET COUNT 233 /CUMM (130-400); RBC DISTRIBUTION WIDTH 13.6 % (11.5-14.5); RED BLOOD CELL CT 4.54 /CUMM (4.70-6.10); WHITE BLOOD CELL COUNT 9.7 /CUMM (4.8-10.8)
[2016-07-26] MEDS ORDERED: AUGMENTIN 875-1 EACH PO (11:48)
[2016-07-26] MEDS ORDERED: FLAGYL500 MG PO (11:48)
[2016-07-26] MEDS ORDERED: TYLENOL EXTRA500 M2 PO (12:07)
[2016-07-26 14:50] VITALS: BP 120/70
== END 2016-07-26 17:00 | DRG 343 ==
LOC: ENRESERVTM → ENRESERVDT → ERH 16:31 → ER-OR 17:03 → 2NA 20:19 → PACUH 20:19 → ENPENDDIS 20:19 → 2NA 21:21
PROVIDERS: Nurse Practitioner; Physician Assistant; Physician Assistant Surgical; ADMIT Surgery
PROC: 0DTJ4ZZ Resection of Appendix, Percutaneous Endoscopic Approach (ICD-10-PCS; principal; 2016-07-23)
DX: K35.89 Other acute appendicitis (principal); R33.9 Retention of urine, unspecified
CPT/HCPCS: 2NASP; 6030; 36415; 82436; 88304; 93005; 93010; 96374; G0378; J0131; J0696; J1100; J1170; J1644; J1885; J2250; J2405; J2765